=== PATIENT | male | born 1960 | race Caucasian/White ===

== ENCOUNTER 2016-12-24 20:14 | Emergency (ER) | payer OTHER ==
[~2016-12-24] VITALS: Ht 190.5 cm; Wt 147.0 kg
[2016-12-24 20:26] VITALS: BP 145/101; PULSE 93; RESP 16; TEMP 98.1; O2SAT 97
[2016-12-24] MEDS ORDERED: B/P MED PO (20:34)
--- NOTE | 2016-12-24 20:44 | PD ---
HPI Chief Complaint: Pain: Acute or Chronic Time Seen by Provider: 20:39 Travel History International Travel<30 days: No Contact w/Intl Traveler<30days: No Traveled to known affect area: No History of Present Illness HPI 56-year-old male presents to the emergency room for evaluation of right foot pain for the past week. Patient states pain started after he spent all [place]. He may have rolled his ankle but does not remember specifically doing so. Pain is localized to the lateral foot over the fifth metatarsal and just below the lateral malleolus. States it is intermittent and worse with certain movements of the foot. He has not been taking anything for his symptoms. CT only came in tonight because his made him. History of hypertension. Denies paresthesias. PFSH Past Medical History Cardiovascular Problems: Yes Social History Tobacco Use: No Allergies-Medications (Allergen,Severity, Reaction): Coded Allergies: No Known Allergies (Unverified , 12/24/16) Reported Meds & Prescriptions Reported Meds & Active Scripts Active Reported [B/P Med] 1 Tab PO DAILY Review of Systems Except as stated in HPI: all other systems reviewed are Neg Physical Exam Narrative GENERAL: Well-nourished, well-developed male in no acute distress. Afebrile. Ambulatory. SKIN: Focused skin assessment warm/dry. No erythema or ecchymosis. HEAD: Normocephalic. EYES: No scleral icterus. No injection or drainage. NECK: Supple, trachea midline. No JVD or lymphadenopathy. CARDIOVASCULAR: Regular rate and rhythm without murmurs, gallops, or rubs. RESPIRATORY: Breath sounds equal bilaterally. No accessory muscle use. EXTREMITY: Right foot nontender to palpation. Full range of motion in all joints. No significant edema. 2+ dorsalis pedis pulse. Data Data Last Documented VS Vital Signs Date Time Temp Pulse Resp B/P Pulse Ox O2 Delivery O2 Flow Rate FiO2 12/24/16 20:35 12/24/16 20:26 98.1 93 16 97 Orders Foot, Complete ([id number]) (12/24/16 ) [facility] Medical Decision Making Medical Screen Exam Complete: Yes Emergency Medical Condition: Yes Medical Record Reviewed: Yes Differential Diagnosis Sprain versus strain versus contusion versus fracture Narrative Course 56-year-old male presents to the emergency room for evaluation of right foot pain for the past week. Patient rolled his foot while [place] and has had persistent pain. It is localized to the lateral aspect just below the malleolus. Patient reports minimal pain. Physical exam is unremarkable. There is trace edema. Right lower extremity is neurovascularly intact with 2+ dorsalis pedis pulse. Full range of motion. X-ray is negative. This is sprain. Patient placed in Hossein wrap and told to follow up with a primary care physician or return to the emergency room for worsening symptoms. He understands and agrees to plan. Diagnosis Primary Impression: Right foot sprain Qualified Code: S93.601A - Right foot sprain, initial encounter Referrals: Primary Care Physician Patient Instructions: Foot Sprain (ED), General Instructions Additional Instructions: Rest and drink plenty of fluids. Take ibuprofen with food as directed, as needed for pain. Apply ice to the affected area for 20 minutes at a time, as needed for pain and swelling. Follow-up with a primary care physician. Return to the emergency room for worsening symptoms. Disposition: 01 DISCHARGE HOME Condition: Stable Destinee Lemus Dec 24, 2016 20:43
--- NOTE | 2016-12-24 21:28 | RADHPO ---
EXAM DATE/TIME: 12/24/2016 20:52 [facility] COMPARISON: No previous studies available for comparison. INDICATIONS : Right lateral foot pain post twisting. MEDICAL HISTORY : None. SURGICAL HISTORY : None. ENCOUNTER: Initial ACUITY: 1 week PAIN SCORE: 1/10 LOCATION: Right lateral foot FINDINGS: 3 views of the right foot reveal valgus angulation at the first metatarsophalangeal joint. Alignment is otherwise normal. No fracture or dislocation. Bone mineralization is normal. Soft tissue swelling is not observed. CONCLUSION: No acute abnormality. Gurinder Gunn Jr., MD on December 24, 2016 at 21:26 Board Certified Radiologist. This report was verified electronically.
== END 2016-12-24 21:42 | disposition home or self-care (01) ==
LOC: PHEFT 20:14
DX: S93.601A Unspecified sprain of right foot, initial encounter (principal); I10 Essential (primary) hypertension; Z86.79 Personal history of other diseases of the circulatory system; X58.XXXA Exposure to other specified factors, initial encounter; Y93.01 Activity, walking, marching and hiking
CPT/HCPCS: 73630; 99283